=== PATIENT | female | born 1955 | race Hispanic/Latino ===

== ENCOUNTER → 2017-12-20 | Outpatient (CLI) | payer OTHER ==
[~2017-12-20] MED LIST: AZEL23SP NS; CHOL500050 PO; FEXO-23 PO; FLUT16H EN; LOVA40TA2 PO; METF500T6 PO; METO-391 PO; OLME20TA22 PO
== END | disposition home or self-care (01) ==
LOC: RAH 10:37
DX: N75.0 Cyst of Bartholin's gland (principal)
CPT/HCPCS: 72195